=== PATIENT | male | born 1955 | race Caucasian/White ===

== ENCOUNTER 2025-03-16 09:00 | Emergency (ER) | payer MEDICARE, OTHER ==
[~2025-03-16] VITALS: Ht 180.3 cm; Wt 99.7 kg
[2025-03-16] MEDS ORDERED: PANTOPRAZOLE SO40 MG PO (09:18)
[2025-03-16] MEDS ORDERED: ALLOPURINOL300 MG PO (09:18)
[2025-03-16 09:40] LABS: BILIRUBIN, URINE NEGATIVE (negative); BLOOD/HGB, URINE NEGATIVE (Negative); KETONE, URINE NEGATIVE (Negative); LEUK ESTERASE, URINE NEGATIVE (negative); NITRITE, URINE NEGATIVE (negative)
[2025-03-16] MEDS ORDERED: PREDNISONE20 MG PO (10:16)
[2025-03-16 11:00] VITALS: BP 120/93
== END 2025-03-16 11:00 | disposition home or self-care (01) ==
LOC: ED 09:00
PROVIDERS: Emergency Medicine
DX: M54.16 Radiculopathy, lumbar region (principal); Z88.0 Allergy status to penicillin; Z79.899 Other long term (current) drug therapy
CPT/HCPCS: 72100; 81003; 99283